=== PATIENT | male | born 1965 | race Caucasian/White ===

== ENCOUNTER 2017-02-07 06:06 | Emergency (ER) | payer MEDICAID, OTHER ==
[~2017-02-07] VITALS: Ht 180.3 cm; Wt 79.4 kg
[~2017-02-07 06:06] MED LIST: ADVAIR 250-501 EACH INH; ALBUTEROL SULF8.5 GM INH; ALBUTEROL2.5 MG/3 M HHN; AZITHROMYCIN250 MG ORAL; PREDNISONE20 MG ORAL; PREDNISONE50 MG ORAL
[2017-02-07] MEDS ORDERED: Solu-MEDROL 125mg Inj ONE (06:08)
--- NOTE | 2017-02-07 06:09 | Emergency Room Report ---
History of Present Illness General Source: Patient, EMS (Darin Drake) Present Illness HPI Patient is a 51-year-old male presented after increased shortness of breath. Patient prior history of asthma. Patient was noted to have a markedly difficulty breathing by EMS and was started on nebulizer treatments with albuterol. Patient sudden onset of symptoms this morning approximately 4 AM. Patient had been given CPAP prior to arrival.The patient reported having increased productive cough for the past few days. He states he normally takes a steroid inhaler as well as albuterol. He reports poor reports smoking approximately 1/2 pack per day (Darin Drake) Allergies: Coded Allergies: No Known Allergies (Unverified , 06/14/13) Patient History Past Medical History: see triage record Social History: Reports: smoking Reviewed Nursing Documentation: PMH: Agreed, PSxH: Agreed (Darin Drake) Nursing Documentation-PMH Hx Asthma: Yes (Darin Drake) Review of Systems All Other Systems: limited - by acuity (Darin Drake) Physical Exam Sp02 EP Interpretation: reviewed, normal General Appearance: alert, GCS 15, moderate distress Head: atraumatic ENT: normal ENT inspection, hearing grossly normal, normal voice Neck: normal inspection, full range of motion, supple, no bony tend Respiratory: accessory muscle use, wheezing, expiration Cardiovascular #1: regular rate, rhythm, no edema Gastrointestinal: normal inspection, normal bowel sounds, non tender, soft, no guarding, no hernia Genitourinary: no CVA tenderness Musculoskeletal: normal inspection, back normal, normal range of motion Neurologic: normal inspection, alert, oriented x3, responsive, staff command and control officer III-XII nml as tested, speech normal Psychiatric: normal inspection, judgement/insight normal, mood/affect normal Skin: normal inspection, normal color, no rash (Darin Drake) Medical Decision Making Diagnostic Impression: Primary Impression: COPD with exacerbation ER Course Patient presented for shortness of breath. Differential included but was not limited to anemia, pneumonia, pneumothorax, myocardial infarction, pericardial effusion, congestive heart failure, acidosis. Because of complexity of patient' s case laboratory testing and imaging studies were ordered.Patient was given IV Solu-Medrol and was started on BiPAP. He was started on a breathing treatments. Labs Test 02/07/17 06:05 White Blood Count 6.2 K/UL (4.8-10.8) Red Blood Count 4.34 M/UL (4.70-6.10) Hemoglobin 15.3 G/DL (14.2-18.0) Hematocrit 44.1 % (42.0-52.0) Mean Corpuscular Volume 102 FL (80-99) Mean Corpuscular Hemoglobin 35.1 PG (27.0-31.0) Mean Corpuscular Hemoglobin Concent 34.6 G/DL (32.0-36.0) Red Cell Distribution Width 11.0 % (11.6-14.8) Platelet Count 264 K/UL (150-450) Mean Platelet Volume 7.3 FL (6.5-10.1) Neutrophils (%) (Auto) 36.6 % (45.0-75.0) Lymphocytes (%) (Auto) 46.5 % (20.0-45.0) Monocytes (%) (Auto) 10.7 % (1.0-10.0) Eosinophils (%) (Auto) 4.5 % (0.0-3.0) Basophils (%) (Auto) 1.6 % (0.0-2.0) (Darin Drake) ER Course Hospital Course 51-year-old M presenting to ED with SOB. h/o COPD Clinical course Patient initially seen and evaluated by Dr. Drake; please see his note for full history and physical Labs - no leukocytosis noted, hemoglobin/hematocrit stable, Cr 1.4, lactate okay , troponins negative CXR - hyperinflated lungs. no infiltrates Patient did require breathing treatments and BiPAP. After which Dr. Drake I agreed that patient should be admitted On reassessment patient states he feels better and wishes to go home. BIPAP removed. patient tolerating well. Understands the risks of leaving. Patient has competency to make his own decisions. Signed AMA form. I feel this is a highly complex case requiring extensive working including EKG/ Rhythm strip, Xray/CT/US, Blood/urine lab work, repeat exams while in ED, and administration of strong opiates/narcotics for pain control, admission to hospital or close patient follow up. Diagnosis - COPD exacerbation Patient left AMA. Given prescriptions for albuterol, prednisone, dulera, amoxicillin. Followup with PMD. Return to ED if symptoms recur or worsen Labs Test 02/07/17 06:05 02/07/17 07:16 White Blood Count 6.2 K/UL (4.8-10.8) Red Blood Count 4.34 M/UL (4.70-6.10) Hemoglobin 15.3 G/DL (14.2-18.0) Hematocrit 44.1 % (42.0-52.0) Mean Corpuscular Volume 102 FL (80-99) Mean Corpuscular Hemoglobin 35.1 PG (27.0-31.0) Mean Corpuscular Hemoglobin Concent 34.6 G/DL (32.0-36.0) Red Cell Distribution Width 11.0 % (11.6-14.8) Platelet Count 264 K/UL (150-450) Mean Platelet Volume 7.3 FL (6.5-10.1) Neutrophils (%) (Auto) 36.6 % (45.0-75.0) Lymphocytes (%) (Auto) 46.5 % (20.0-45.0) Monocytes (%) (Auto) 10.7 % (1.0-10.0) Eosinophils (%) (Auto) 4.5 % (0.0-3.0) Basophils (%) (Auto) 1.6 % (0.0-2.0) Sodium Level 138 mEQ/L (135-145) Potassium Level 3.9 mEQ/L (3.4-4.9) Chloride Level 102 mEQ/L (98-107) Carbon Dioxide Level 21 mEQ/L (20-30) Anion Gap 15 (5-15) Blood Urea Nitrogen 17 mg/dL (7-23) Creatinine 1.4 mg/dL (0.7-1.2) Estimat Glomerular Filtration Rate 53.9 mL/min (>60) Glucose Level 99 mg/dL (74-106) Calcium Level 9.4 mg/dL (8.6-10.2) Total Bilirubin 0.6 mg/dL (0.0-1.2) Aspartate Amino Transf (AST/SGOT) 37 U/L (5-40) Alanine Aminotransferase (ALT/SGPT) 19 U/L (3-41) Alkaline Phosphatase 67 U/L (40-129) Total Creatine Kinase 151 U/L (38-174) Creatine Kinase MB 3.3 ng/mL (< 6.7) Creatine Kinase MB Relative Index 2.1 Troponin I < 0.30 ng/mL (<=0.30) Pro-B-Type Natriuretic Peptide 7 pg/mL (0-125) Total Protein 7.1 g/dL (6.6-8.7) Albumin 4.3 g/dL (3.5-5.2) Globulin 2.8 g/dL Albumin/Globulin Ratio 1.5 (1.0-2.7) Arterial Blood pH 7.430 (7.350-7.450) Arterial Blood Partial Pressure CO2 31.0 mmHg (35.0-45.0) Arterial Blood Partial Pressure O2 270.1 mmHg (75.0-100.0) Arterial Blood HCO3 20.0 mmol/L (22.0-26.0) Arterial Blood Oxygen Saturation 99.0 % (92.0-98.0) Arterial Blood Base Excess 3.1 Pb Test (BRODY RAVI M.D.) EKG Diagnostic Results Rate: normal - 71 Rhythm: NSR ST Segments: no acute changes ASA given to the pt in ED: No (Darin Drake) Rhythm Strip Diag. Results EP Interpretation: yes Rhythm: NSR, no PVC's (Darin Drake) Chest X-Ray Diagnostic Results Chest X-Ray Diagnostic Results : Chest X-Ray Ordered: Yes # of Views/Limited/Complete: 1 View Indication: Shortness of Breath EP Interpretation: Yes Interpretation: no consolidation, no effusion, no pneumothorax, no acute cardiopulmonary disease Impression: No acute disease Interpreting ER Provider: electronicaly signed by Brody Ravi MD (BRODY RAVI M.D.) Status: improved (Darin Drake) Status: improved (BRODY RAVI M.D.) Disposition: AGAINST MEDICAL ADVICE Condition: Stable Scripts Prednisone* (PREDNISONE*) 20 Mg Tablet 40 MG ORAL DAILY, #10 TAB Prov: BRODY RAVI M.D. 02/07/17 Amoxicillin* (AMOXIL*) 500 Mg Capsule 500 MG ORAL THREE TIMES A DAY, #21 CAP Prov: BRODY RAVI M.D. 02/07/17 Mometasone/Formoterol (DULERA 200 MCG/5 MCG INHALER) 13 Gm Hfa.aer.ad 13 GM IH BID, #1 UNIT Prov: BRODY RAVI M.D. 02/07/17 Albuterol Sulfate* (ALBUTEROL SULFATE MDI*) 8.5 Gm Hfa.aer.ad 2 PUFF INH Q4H Y for cough/wheezing, #1 EA 0 Refills Prov: BRODY RAVI M.D. 02/07/17 Darin Drake Feb 07, 2017 06:09 BRODY RAVI M.D. Feb 07, 2017 08:41
[2017-02-07] MEDS ORDERED: Albuterol ud Inhalation HHN SCH (06:15)
[2017-02-07] MEDS ORDERED: DuoNeb 0.5-3(2.5)mg/3ml neb HHN ONE (06:15)
[2017-02-07] MEDS ORDERED: Solu-MEDROL 125mg Inj IVP ONE (06:15)
[2017-02-07] MEDS ORDERED: Albuterol ud Inhalation ONE (06:17)
[2017-02-07] MEDS ORDERED: DuoNeb 0.5-3(2.5)mg/3ml neb ONE (06:17)
[2017-02-07 06:32] LABS: BASOPHILS % (AUTO) 1.6 % (0.0-2.0); EOSINOPHILS % (AUTO) 4.5 % (0.0-3.0); LYMPHOCYTES % (AUTO) 46.5 % (20.0-45.0); MEAN CORPUSCULAR HEMOGLOBIN 35.1 PG (27.0-31.0); MEAN CORPUSCULAR HGB CONC 34.6 G/DL (32.0-36.0); MEAN CORPUSCULAR VOLUME 102 FL (80-99); MEAN PLATELET VOLUME 7.3 FL (6.5-10.1); MONOCYTES % (AUTO) 10.7 % (1.0-10.0); NEUTROPHILS % (AUTO) 36.6 % (45.0-75.0); PLATELET COUNT 264 K/UL (150-450); RED BLOOD COUNT 4.34 M/UL (4.70-6.10); WHITE BLOOD COUNT 6.2 K/UL (4.8-10.8)
[2017-02-07 06:34] VITALS: BP 108/67
[2017-02-07 06:55] LABS: TROPONIN I < 0.30 ng/mL (<=0.30)
[2017-02-07 07:00] LABS: ALBUMIN/GLOBULIN RATIO 1.5 (1.0-2.7); CALCIUM 9.4 mg/dL (8.6-10.2); CREATININE 1.4 mg/dL (0.7-1.2); GLOMERULAR FILTRATION RATE 53.9 mL/min (>60); POTASSIUM 3.9 mEQ/L (3.4-4.9); TOTAL PROTEIN 7.1 g/dL (6.6-8.7)
[2017-02-07 07:11] LABS: CKMB 3.3 ng/mL (< 6.7)
[2017-02-07 07:27] LABS: ABG BASE EXCESS 3.1
[2017-02-07 08:08] VITALS: BP 118/71
--- NOTE | 2017-02-07 08:15 | Diagnostic Imaging Report ---
Indication: Shortness breath Technique: Single portable AP view of the chest. Findings: Comparison: None. Mild aortic arch calcification again noted. The bones and extra pulmonary soft tissues, the remainder of the cardiomediastinal silhouette, pulmonary vasculature and parenchyma, and pleural surfaces remain unremarkable. IMPRESSION: Aortosclerosis Otherwise negative portable AP chest, unchanged.
[2017-02-07 08:26] VITALS: BP 118/71
[2017-02-07] MEDS ORDERED: DULERA 200 MCG/13 GM IH (08:26)
[2017-02-07] MEDS ORDERED: ALBUTEROL SULF8.5 GM INH (08:26)
[2017-02-07] MEDS ORDERED: PREDNISONE20 MG ORAL (08:26)
[2017-02-07] MEDS ORDERED: AMOXICILLIN500 MG ORAL (08:26)
--- NOTE | 2017-02-10 14:55 | Cardiology Report ---
APPROVED REPORT EKG Measurement Heart [id number] Normal sinus rhythm Possible Left atrial enlargement Borderline ECG
== END 2017-02-07 08:32 | disposition left against medical advice (07) ==
LOC: EDBD 06:06 → EMR 06:25
DX: J44.1 Chronic obstructive pulmonary disease with (acute) exacerbation (principal); J45.909 Unspecified asthma, uncomplicated; F17.200 Nicotine dependence, unspecified, uncomplicated
CPT/HCPCS: 36415; 36600; 71010; 80053; 82550; 82553; 82803; 83880; 84484; 85025; 93005; 94640; 94660; 94664; 99284; J2930; J7620